=== PATIENT | male | born 1995 | race Two or more races ===

== ENCOUNTER 2017-03-25 15:20 | Emergency (ER) | payer OTHER ==
[~2017-03-25] VITALS: Ht 180.3 cm; Wt 113.4 kg
[2017-03-25 15:37] VITALS: BP 122/77
== END 2017-03-25 16:08 | disposition home or self-care (01) ==
LOC: ER 15:20
DX: J02.9 Acute pharyngitis, unspecified (principal); F17.210 Nicotine dependence, cigarettes, uncomplicated